=== PATIENT | male | born 1930 | race Caucasian/White ===

== ENCOUNTER 2017-02-17 11:17 | Outpatient (CLI) | payer MEDICARE, BC ==
[~2017-02-17] VITALS: Ht 170.2 cm; Wt 76.8 kg
--- NOTE | ~2017-02-17 | HEMODYNAMI ---
PATIENT:BLADE PRITCHARD MEDICAL RECORD: [id number] : 34 LOCATION:D.CAT ADMISSION DATE: 02/17/17 Generatedon:02/17/201714:15 Patient name: BLADE PRITCHARD Patient #: [id number] SSN: : 1930 Date of study: 02/17/2017 Page: Of Hemodynamic Procedure Report Patient Data Patient Demographics Procedure consent was obtained First Name: BLADE Gender: Male Last Name: FRANCHESKA : 1930 Patient #: [id number] Age: 86 year(s) Race: Unknown Additional ID: [id number] Contact details [address]: [address] [place] [address] State: [place] City: [place] Zip code: [address] Past Medical History Allergies: No known allergies Admission Admission Data Admission Date: 02/17/2017 Admission Time: 11:17 Lab Results Lab Result Date: 02/17/2017 Lab Result Time: 11:55 Biochemistry Name Units Result Min Max BUN mg/dl 20 --(----)*- 7 18 Creatinine mg/dl 1.5 --(----)-* 0.6 1.3 CBC Name Units Result Min Max Hematocrit % 38.3 *-(----)-- 42 54 Hemoglobin g/dl 12.5 *-(----)-- 13.5 17.5 Procedure Procedure Types Cath Procedure Miscellaneous Procedures Moderate Sedation up to 45 minutes Peripheral Cath Diagnostic Procedure Cath Peripheral Kgqfv-Eoaokpg-Tit-Off Procedure Description Procedure Date Procedure Date: 02/17/2017 Procedure Start Time: 14:00 Procedure End Time: 14:14 Procedure Staff Name Function Jose Ramon Barajas MD Performing Physician Cassie Nevarez RT Scrub Franklin Fam RN Nurse Herson Soliz RT Monitor Procedure Data Cath Procedure Fluoroscopy Diagnostic fluoroscopy Total fluoroscopy Time: 1.8 time: 1.8 min min Diagnostic fluoroscopy Total fluoroscopy dose: dose: 128.37 mGy 128.37 mGy Contrast Material Contrast Material Type Amount (ml) Isovue 300 123 Entry Location Entry Primary Successful Side Size Upsize Upsize Entry Closure Succes sful Closure Location (Fr) 1 (Fr) 2 (Fr) Remarks Device Remarks Femoral Right 5 Fr Exoseal artery Estimated blood loss: 5 ml Diagnostic catheters Device Type Used For End Catheter Placement Cordis Tempo 5Fr UF Procedure catheter Procedure Complications No complications Procedure Medications Medication Administration Route Dosage Oxygen NC 2 l/min Heparin Flush Bag added to field 2 bags (1000units/500ml NS) 0.9% NaCl I.V. 100 ml/hr Fentanyl I.V. 50 mcg Versed I.V. 1 mg Fentanyl I.V. 50 mcg Versed I.V. 1 mg Hemodynamics Rest HGB: 12.5 (g/dl) Heart Rate: 60 (bpm) Snapshots Pre Cath Intra NCS Post Cath Vital Signs Time Heart Resp SPO2 NIBP (mmHg) Rhythm Pain Sedation Rate (ipm) (%) Status Level (bpm) 13:40:21 64 17 99 159/79(127) NSR 0 (11) 10(A) , No pain 13:44:49 60 17 98 153/72(137) NSR 0 (11) 10(A) , No pain 13:49:12 60 16 98 136/73(119) NSR 0 (11) 10(A) , No pain 13:53:32 60 17 98 144/71(118) NSR 0 (11) 9(A) , No pain 13:57:56 60 19 99 137/74(119) NSR 0 (11) 9(A) , No pain 14:02:18 60 18 98 127/66(116) NSR 0 (11) 9(A) , No pain 14:06:38 63 16 97 118/64(104) NSR 0 (11) 9(A) , No pain 14:10:58 60 17 98 131/60(117) NSR 0 (11) 9(A) , No pain 14:12:45 61 17 99 128/67(115) NSR 0 (11) 9(A) , No pain Medications Time Medication Route Dose Verified Delivered Reason Notes Effec tiveness by by 13:51:14 Oxygen NC 2 Franklin Reid Per l/min Sarwat Fam RN physician RN 13:51:25 Heparin Flush added 2 Franklin Reid used for Bag to bags Fam Fam construction management assistant (1000units/500ml field RN NS) 13:51:37 0.9% NaCl I.V. 100 Franklin Reid Per ml/hr Sarwat aFm RN physician RN 13:52:23 Fentanyl I.V. 50 Franklin Franklin for [facility] Sarwat Fam RN sedation RN 13:52:31 Versed I.V. 1 mg Franklin Franklin for Sarwat Fma RN sedation RN 13:58:33 Fentanyl I.V. 50 Franklin Franklin for [facility] Sarwat Fam RN sedation RN 13:58:39 Versed I.V. 1 mg Franklin Franklin for Sarwat Fam RN sedation ct technician Log Time Note 13:03:37 Informed consent obtained and on chart 13:04:51 Diagnostic Cath status Elective 13:05:44 H&P Date Dictated: 02/10/2017 Within 30 days and on chart., H&P Addendum completed by physician on day of procedure. (MUST COMPLETE FOR ALL OUTPATIENTS). 13:22:02 Franklin Fam RN sent for patient. Start room use. 13:32:04 Time tracking: Regular hours 13:32:07 Plan of Care:Hemodynamics will remain stable., Cardiac rhythm will remain stable., Comfort level will be maintained., Respiratory function will remain adequate., Patient/ family verbilizes understanding of procedure., Procedure tolerated without complication., Recovers from procedure without complications.. 13:32:47 Lab Result : Hemoglobin 12.5 g/dl 13:32:47 Lab Result : Hematocrit 38.3 % 13:32:47 Lab Result : BUN 20 mg/dl 13:32:47 Lab Result : Creatinine 1.5 mg/dl 13:33:14 Patient allergic to No known allergies 13:34:07 Patient received from Pre/Post Procedure Room to CCL 3 Alert and oriented. Tansferred to table in Supine position. 13:34:08 Warm blankets applied, and kaleigh hugger turned on for patient comfort. 13:34:08 Correct patient and procedure confirmed by team. 13:34:09 ECG and BP/O2 sat monitors applied to patient. 13:39:00 Vital chart was started 13:47:36 Baseline sample Acquired. 13:48:15 Rhythm: paced 13:48:21 Pre-procedure instructions explained to patient. 13:48:21 Pre-op teaching completed and patient verbalized understanding. 13:48:22 Family in waiting room. 13:48:23 Patient NPO since Midnight. 13:48:25 Is the patient allergic to Iodine/contrast media? No. 13:48:26 Is patient on blood thinner?Yes 13:48:30 ACC The patient was administered the following blood thiners within the last 24 hours: Eliquis 13:48:32 Patient diabetic? No. 13:48:50 Previous problem with sedation/anesthesia? No ? 13:48:52 Snore? Yes 13:48:53 Sleep apnea? No 13:48:58 Deviated septum? No 13:48:59 Opens mouth fully? Yes 13:49:00 Sticks out tongue? Yes 13:49:03 Airway obstruction? Yes copd 13:49:06 Dentures? No ? 13:49:11 Patient pain scale 0/10 ?. 13:49:17 IV patent on arrival in left forearm with 0.9% NaCl at [facility]. 13:49:20 Lab results completed and on chart. 13:49:26 Bilateral groins area was prepped with chlora-prep and draped in sterile fashion 13:49:28 Alarms reviewed by R. N. 13:49:28 Sharps counted by scrub and verified by R.N. 13:49:41 Tegaderm 4 x 4 opened to sterile field. 13:49:43 Acist Manifold opened to sterile field. 13:49:44 Acist Hand Control opened to sterile field. 13:49:45 Acist Syringe opened to sterile field. 13:49:46 Bag Decanter opened to sterile field. 13:49:46 Medline Cath Pack opened to sterile field. 13:49:47 Terumo 5Fr Montgomery Sheath opened to sterile field. 13:49:47 St Justyn 260cm J .035 wire opened to sterile field. 13:49:57 Physician arrived 13:49:57 --------ALL STOP TIME OUT------ 13:49:57 Final Timeout: patient, procedure, and site verified with staff and physician. All members of the team are in agreement. 13:49:59 Bilateral groins site verified by team. 13:50:01 Physical assessment completed. ASA score P 2 - A patient with mild systemic disease as per Jose Ramon Barajas MD. 13:50:04 Sedation plan: IV Moderate Sedation Versed, Fentanyl 13:51:14 Oxygen 2 l/min NC was administered by Franklin Fam RN; Per physician; 13:51:25 Heparin Flush Bag (1000units/500ml NS) 2 bags added to field was administered by Franklin Fam RN; used for procedure; 13:51:37 0.9% NaCl 100 ml/hr I.V. was administered by Franklin Fam RN; Per physician; 13:52:23 Fentanyl 50 mcg I.V. was administered by Franklin Fam RN; for sedation; 13:52:31 Versed 1 mg I.V. was administered by Franklin Fam RN; for sedation; 13:58:33 Fentanyl 50 mcg I.V. was administered by Franklin Fam RN; for sedation; 13:58:39 Versed 1 mg I.V. was administered by Franklin Fam RN; for sedation; 13:58:43 Zero performed for pressure channel P1 13:58:48 Zero performed for pressure channel P1 13:58:54 Zero performed for pressure channel P1 13:59:32 Zero performed for pressure channel P1 13:59:42 Zero performed for pressure channel P1 13:59:53 Zero performed for pressure channel P1 14:00:00 Zero performed for pressure channel P1 14:00:16 Procedure started. 14:00:16 Full Disclosure recording started 14:00:19 Local anesthetic to right femoral artery with Lidocaine 2% by Jose Ramon Barajas MD.INITIAL ACCESS ONLY 14:00:25 Zero performed for pressure channel P1 14:00:38 Zero performed for pressure channel P1 14:00:48 A 5 Fr sheath was inserted into the Right Femoral artery 14:01:16 A Cordis Tempo 5Fr UF catheter was advanced over the wire and used for Procedure. 14:01:34 Zero performed for pressure channel P1 14:01:38 Zero performed for pressure channel P1 14:05:28 Abdominal Aortagram was performed. 14:05:30 Right leg runoff performed. 14:05:54 Left leg runoff performed. 14:08:36 Cordis 5Fr Exoseal opened to sterile field. 14:08:39 Catheter removed. 14:08:48 Sheath removed intact; hemostasis achieved with Exoseal to the Right Femoral artery. 14:12:33 Procedure ended.(Physican Out) 14:13:17 Fluoroscopy time 01.80 minutes. 14:13:25 Fluoroscopy dose: 128.37 mGy 14:13:25 Flurop Dose total: 128.37 14:13:44 Contrast amount:Isovue 300 123ml. 14:13:45 Sharps counted by scrub and verified by R.N. 14:13:48 Insertion/operative site no bleeding no hematoma. 14:13:51 Post-op/insertion site Right Femoral artery dressed using a 4 x 4 and Tegaderm. 14:13:55 Post right femoral artery:stable, soft, clean and dry 14:13:58 Post Procedure Pulses reassessed and unchanged 14:14:00 Post-procedure physical assessment completed. ASA score P 2 - A patient with mild systemic disease as per Jose Ramon Barajas MD. 14:14:02 Post procedure rhythm: unchanged. 14:14:04 Estimated blood loss: 5 ml 14:14:05 Post procedure instruction explained to patient.Patient verbalizes understanding. 14:14:06 Patient needs reinforcement of post procedure teaching. 14:14:18 Procedure type changed to Cath procedure, Miscellaneous Procedures, Moderate Sedation up to 45 minutes, Peripheral Cath Diagnostic Procedure, Cath Peripheral, Kqdqh-Csdiynv-Qve-Off 14:14:37 Procedure and supply charges have been captured, reviewed, submitted and are correct. 14:14:40 Procedure Complication : No complications 14:14:42 Vital chart was stopped 14:14:42 See physician's report for complete and final results. 14:14:44 Report given to Pre/Post Procedure Room. 14:14:49 Patient transfered to Pre/Post Procedure Room with Stretcher. 14:14:56 Procedure ended. 14:14:56 Full Disclosure recording stopped 14:15:01 End room use (Document Last) Device Usage Item Manufacture Quantity Catalog Hospital Part Current Minimal Lot# / Name Number Charge Number Stock Stock Severino al# Code Tegaderm 1 [id number] [id number] 5 4 x 4 Acist Acist 1 89470 812783 847101 583754 5 [employer]ifold [employer] Inc Acist Acist 1 89798 135912 839308 617592 5 Hand Medical Control Systems Inc Acist Acist 1 51186 012284 783571 888363 20 Syringe Medical [employer] Inc Bag Microtek 1 2002S 994066 69669 015338 5 [employer] Medline Cardinal 1 [id number] 335657 07079 437539 5 Cath Health Pack Terumo Terumo 1 [id number] 448259 404356 922587 [address] St Justyn 1 258121 682135 773406 220716 30 260cm J .035 wire Cordis Cardinal 1 [id number] 729215 746967 649923 10 [facility] 5Fr UF catheter Cordis Cardinal 1 [id number] 910933 316499 963887 10 5Fr Health Exoseal Signature Audit [place] Stage Time Signature Unsigned Intra-Procedure 02/17/2017 Herson Soliz 2:15:13 PM RT(R) Signatures Monitor : Herson Soliz RT Signature : Date : Time : [place] [id number] [place] [address]
--- NOTE | ~2017-02-17 | OP ---
PATIENT NAME: BLADE PRITCHARD MEDICAL RECORD: [id number] :32 LOCATION:D.CAT ADMISSION DATE: SURGEON: ELIZABETH ROBLES M.D. DATE OF OPERATION: 02/17/2017 REFERRING PHYSICIAN: Guillermo Ta DO PROCEDURES PERFORMED: Aortofemoral runoff. INDICATION: An 86-year-old gentleman, who presents with lifestyle limiting claudication, abnormal lower extremity arterial duplex. DESCRIPTION: A 5-Persian sheath was inserted in retrograde fashion in the right common femoral artery. Next, a UF catheter was advanced to the level of T12. Power injection was performed to visualize the distal aorta. Next, the catheter was pulled down to the level of the bifurcation. Power injection was then performed to visualize the right and left lower extremities. FINDINGS: The mid aorta is of good caliber. Each kidney received a single arterial supply. There is no evidence of renal artery stenosis. The infrarenal section above the bifurcation point, there does appear to be some aneurysmal formation of the distal aorta. It does not appear to be saccular. 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 There appears to be at least 12-mm across in diameter. This is followed by stenosis or abrupt step down to the right external iliac artery. The right internal iliac artery is 100% occluded. The right common femoral artery is widely patent. The right superficial artery has mild irregularities, but nothing worse than 20%. Right popliteal artery has mild irregularities, but nothing worse than 20%. Below the knee, there appears to be at least 2-vessel runoff. The left common iliac artery is large in caliber. He does not have any evidence of aneurysmal formation. The left internal iliac artery is occluded shortly after its takeoff. The left external iliac artery is large in caliber and widely patent. The left common femoral artery is large in caliber and widely patent. The left superficial artery is large in caliber and patent. The distal aspect has a smooth 40% stenosis at the junction of the popliteal artery. The left popliteal artery has mild irregularities. It is widely patent. Below the knee, there appears to be at least 2-vessel runoff. 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 I suspect his pain may be from his occluded internal iliac arteries. RECOMMENDATIONS: Likely, I will ask Dr. Ferreira to review the case. It sounds the aneurysm is concerning and could be vulnerable to rupture. TRANSINT:[id number] Voice Confirmation ID: [id number] DOCUMENT ID: [id number] OPERATIVE REPORT [id number] BLADE PRITCHARD TIMOTHY E M.D. CC: [id number] DICTATION DATE: 02/17/171421 TRANSIT MIXER DRIVER: 02/18/17 0018 DEP CLI 02/17/17 [place] [id number] [place] [id number]
[2017-02-17] MEDS ORDERED: NORVASC5 MG PO (11:47)
[2017-02-17] MEDS ORDERED: ELIQUIS2.5 MG PO (11:47)
[2017-02-17] MEDS ORDERED: ARICEPT5 MG PO (11:48)
[2017-02-17] MEDS ORDERED: DUTOPROL 25-121 EACH PO (11:49)
[2017-02-17] MEDS ORDERED: HYTRIN5 MG PO (11:50)
[2017-02-17] MEDS ORDERED: XALATAN 0.0052.5 ML RIGHT EYE (11:51)
[2017-02-17] MEDS ORDERED: SYMBICORT 16010.2 GM INH (11:53)
[2017-02-17] MEDS ORDERED: COMBIVENT RESPIM4 GM INH (11:53)
[2017-02-17] MEDS ORDERED: PROSCAR5 MG PO (11:54)
[2017-02-17] MEDS ORDERED: FOLIC ACID1 MG PO (11:55)
[2017-02-17] MEDS ORDERED: ZANTAC150 MG PO (11:56)
[2017-02-17 12:03] VITALS: BP 137/71; Ht 170.2 cm; Wt 76.8 kg
[2017-02-17 12:22] LABS: ANION GAP 10.1 mmol/L (8-16); CALCIUM 8.8 mg/dL (8.5-10.1); CREATININE - SERUM 1.5 mg/dL (0.6-1.3); POTASSIUM - SERUM 4.1 mmol/L (3.5-5.1)
[2017-02-17 12:44] LABS: BASOPHILS 0.2 % (0-2); HEMATOCRIT 38.3 % (42.0-54.0); HEMOGLOBIN 12.5 g/dL (13.5-17.5); IMMATURE GRANULOCYTES 0.1 % (0-5); LYMPHOCYTES 14.8 % (15-50); MCH 32.1 pg (26.0-34.0); MCHC 32.6 g/dL (31.0-37.0); MCV 98.5 fL (80.0-100.0); MEAN PLATELET VOLUME 10.5 fL (7.4-10.4); NEUTROPHILS 74.9 % (40-80); PLATELET COUNT 155 10x3/uL (130-400); RBC 3.89 10x6/uL (4.20-6.10); RDW 13.6 % (11.5-14.5); WBC 8.7 10x3/uL (4.8-10.8)
--- NOTE | 2017-02-17 17:00 | NUR ---
1440 LYING FLAT, NSR RATE, NO RESP DISTRESS, ROOM AIR. R GROIN 5F EXOSEAL C/D/I WITH NO HEMATOMA OR BLEEDING. FAMILY AT BEDSIDE. 1530 R GROIN REMAINS C/D/I WITH NO HEMATOMA OR BLEEDING. NSR RATE 62 W NO C/O CHEST PAIN. PULSES PALP X 4. 1630 PIV REMOVED FROM LEFT FOREARM WITH BANDAID APPLIED. AMBULATED TO BATHROOM TO VOID. R GROIN REMAINS C/D/I AFTER AMBULATING. D/C 1700 D/C INSTRUCTIONS DISCUSSED WITH PATIENT AND FAMILY. WHEELED OUT VIA WHEELCHAIR.
== END 2017-02-17 17:06 | disposition home or self-care (01) ==
LOC: D.CATH 11:17
PROVIDERS: Internal Medicine Cardiovascular Disease
DX: I25.10 Atherosclerotic heart disease of native coronary artery without angina pectoris (principal); I70.213 Atherosclerosis of native arteries of extremities with intermittent claudication, bilateral legs; I10 Essential (primary) hypertension; Z95.0 Presence of cardiac pacemaker; E78.5 Hyperlipidemia, unspecified; Z01.812 Encounter for preprocedural laboratory examination

== ENCOUNTER 2017-06-26 07:49 | Day surgery (SDC) | payer MEDICARE, BC ==
[~2017-06-26] VITALS: Ht 170.2 cm; Wt 77.1 kg
[~2017-06-26 07:49] MED LIST: ARICEPT5 MG PO; COMBIVENT RESPIM4 GM INH; DUTOPROL 25-121 EACH PO; ELIQUIS2.5 MG PO; FOLIC ACID1 MG PO; HYTRIN5 MG PO; NORVASC5 MG PO; PROSCAR5 MG PO; SYMBICORT 16010.2 GM INH; XALATAN 0.0052.5 ML RIGHT EYE; ZANTAC150 MG PO
[2017-06-26 08:27] VITALS: BP 140/66; Ht 170.2 cm; Wt 77.1 kg
[2017-06-26 08:38] LABS: BASOPHILS 0.4 % (0-2); EOSINOPHILS 2.6 % (0-7); HEMATOCRIT 38.4 % (42.0-54.0); IMMATURE GRANULOCYTES 0.1 % (0-5); LYMPHOCYTES 17.7 % (15-50); MCH 32.7 pg (26.0-34.0); MCHC 33.9 g/dL (31.0-37.0); MCV 96.7 fL (80.0-100.0); MONOCYTES 11.9 % (2-11); NEUTROPHILS 67.3 % (40-80); PLATELET COUNT 133 10x3/uL (130-400); RBC 3.97 10x6/uL (4.20-6.10); RDW 12.8 % (11.5-14.5); WBC 6.9 10x3/uL (4.8-10.8)
[2017-06-26 08:55] LABS: ANION GAP 7.9 mmol/L (8-16); CALCIUM 8.6 mg/dL (8.5-10.1); CARBON DIOXIDE 28.3 mmol/L (21.0-32.0); CREATININE - SERUM 1.6 mg/dL (0.6-1.3); POTASSIUM - SERUM 4.2 mmol/L (3.5-5.1)
--- NOTE | 2017-06-26 20:21 | NUR ---
1320--OROURKE CATH CARE AND TEACHING SHOWN, PT AND FAMILY VERBALIZES UNDERSTANDING. PT UP TO DRESS AT THIS TIME. LINDEN TAPIA 1340--DISCHARGE INSTRUCTIONS GIVEN, PT VERBALIZES UNDERSTANDING. PT OFF UNIT VIA WC. LINDEN TAPIA
--- NOTE | 2017-06-27 09:14 | OP ---
PATIENT NAME: BLADE PRITCHARD MEDICAL RECORD: [id number] :32 LOCATION:D.[facility] ADMISSION DATE: SURGEON: ROBERTH GORDILLO MD DATE OF OPERATION: 06/26/2017 SURGEON: Roberth Gordillo MD. ANESTHESIA: General anesthesia, Rafat Ferreira CRNA PREOPERATIVE DIAGNOSIS: Obstructive benign prostatic hypertrophy. PROCEDURES: Cystoscopy, GreenLight laser transurethral resection of the prostate, power 80 nassar, energy 18,266 joules, laser on time 3 minutes 55 seconds. BLOOD LOSS: None. FINDINGS: Obstructive bladder neck. Prior TURP of the lateral lobes of the prostate. Trabeculated bladder with no bladder tumors seen. Single ureteral orifices located at a distance away from the bladder neck. CLINICAL HISTORY: This 86-year-old gentleman served in [employer] in the 1950s under General [employer] Good. Subsequently, he had problems with obstructive BPH and he was given a TURP many years ago at the [facility]. He has been on finasteride and terazosin for many years for recurrence of BPH symptoms, but they have not been helping him. He comes now to have repeat TURP performed on presumed prostatic regrowth. I actually saw him way back in January, but he decided to have a surgery done now. He is not allergic to any medications. He was given Ancef IV carton lettering machine operator to the OR. DESCRIPTION OF PROCEDURE: The patient was given induction of general anesthesia. He was placed into dorsal lithotomy position and prepped and draped. A 26-New Zealander laser resectoscope was placed into the penile urethra after dilating the meatus with 82-36-Wdkzos with male sounds. The penile urethra was nonobstructive. The prostatic urethra shows normal verumontanum. The bilateral lateral lobes are not obstructive. They have been well resected in the past. What is prominent is a tight bladder neck due to regrowth of some the median lobe. Going into the bladder, there were single ureteral orifices on each side. The bladder is moderately trabeculated. No bladder tumors were seen. We can find our resection to the area between the bladder neck and the location just proximal to the verumontanum. A power of 80 nassar was used. We started with resection at the 6 o'clock position to open up a channel. We did encounter some of the lateral lobes and these were taken down also to the pseudocapsule. The tissue responded extremely well to the laser energy and vaporization was very quick. At the end of the procedure, he had a wide open channel all the way from the verumontanum level all the way to the bladder neck. No bleeding at all had been encountered. We removed the scope. A 20-New Zealander 3-way Pacheco catheter was then inserted into the bladder. The inflow port was plugged using a catheter plug. The catheter was put to bag drainage. He will be discharged home today with the Pacheco catheter. We will give his instructions on how to remove the Pacheco catheter tomorrow. If they have difficulty, they can always come to my office to have the catheter removed. TRANSINT:[id number] Voice Confirmation ID: [id number] DOCUMENT ID: [id number] OPERATIVE REPORT [id number] BLADE PRITCHARD, ROBERTH Myrick MD at 0914 CC: [id number] DICTATION DATE: 06/26/17 1155 BOILERMAKER MECHANIC: 06/26/17 1610 [facility] 06/26/17 [facility] [address] [place] [address]
== END 2017-06-26 13:40 | disposition home or self-care (01) ==
LOC: D.OPS 07:49 → D.PAN 10:15 → D.OPS 10:45 → D.PAN 12:50 → D.OPS 13:00
PROVIDERS: Anesthesiology
DX: N40.0 Benign prostatic hyperplasia without lower urinary tract symptoms (principal); I25.10 Atherosclerotic heart disease of native coronary artery without angina pectoris; I10 Essential (primary) hypertension; K21.9 Gastro-esophageal reflux disease without esophagitis; J44.9 Chronic obstructive pulmonary disease, unspecified; Z01.812 Encounter for preprocedural laboratory examination

== ENCOUNTER → 2017-07-28 18:21 | Outpatient (CLI) | payer MEDICARE, BC ==
[2017-06-26 08:27] VITALS: BMI 26.7
[2017-08-04 16:12] LABS: AEROBE ID Final report (()); RESULT 1 Streptococcus mitis (())
== END | disposition home or self-care (01) ==
LOC: D.LABREF 18:21
PROVIDERS: Urology
DX: N39.0 Urinary tract infection, site not specified (principal)

== ENCOUNTER → 2017-08-11 18:06 | Outpatient (CLI) | payer MEDICARE, BC ==
[2017-06-26 08:27] VITALS: BMI 26.7
== END | disposition home or self-care (01) ==
LOC: D.LABREF 18:06
DX: R31.9 Hematuria, unspecified (principal)

== ENCOUNTER → 2017-08-27 18:36 | Outpatient (CLI) | payer MEDICARE, BC ==
[2017-06-26 08:27] VITALS: BMI 26.7
== END | disposition home or self-care (01) ==
LOC: D.LABREF 18:36
DX: N39.0 Urinary tract infection, site not specified (principal)

== ENCOUNTER → 2017-09-23 20:00 | Outpatient (CLI) | payer MEDICARE, BC ==
[2017-06-26 08:27] VITALS: BMI 26.7
== END | disposition home or self-care (01) ==
LOC: D.LABREF 20:00
DX: N39.0 Urinary tract infection, site not specified (principal)

== ENCOUNTER → 2017-11-25 10:03 | Outpatient (CLI) | payer MEDICARE, BC ==
[2017-06-26 08:27] VITALS: BMI 26.7
== END | disposition home or self-care (01) ==
LOC: D.CT 10:03
DX: I71.4 Abdominal aortic aneurysm, without rupture (principal); I72.3 Aneurysm of iliac artery

== ENCOUNTER 2018-07-02 05:40 | Day surgery (SDC) | payer MEDICARE, BC ==
[2018-07-01 16:04] LABS: BASOPHILS 0.4 % (0-2); EOSINOPHILS 4.3 % (0-7); HEMATOCRIT 35.7 % (42.0-54.0); IMMATURE GRANULOCYTES 0.1 % (0-5); MCHC 33.6 g/dL (31.0-37.0); MCV 95.2 fL (80.0-100.0); MEAN PLATELET VOLUME 10.6 fL (7.4-10.4); MONOCYTES 12.4 % (2-11); NEUTROPHILS 60.8 % (40-80); PLATELET COUNT 150 10x3/uL (130-400); RBC 3.75 10x6/uL (4.20-6.10); RDW 12.4 % (11.5-14.5); WBC 6.7 10x3/uL (4.8-10.8)
[2018-07-01 16:28] LABS: ANION GAP 14.7 mmol/L (8-16); CALCIUM 8.5 mg/dL (8.5-10.1); CARBON DIOXIDE 26.6 mmol/L (21.0-32.0); CREATININE - SERUM 1.5 mg/dL (0.6-1.3); POTASSIUM - SERUM 4.3 mmol/L (3.5-5.1)
[~2018-07-02] VITALS: Ht 170.2 cm; Wt 72.6 kg
--- NOTE | ~2018-07-02 | OP ---
PATIENT NAME: BLADE PRITCHARD MEDICAL RECORD: [id number] :32 LOCATION:D.OPS ADMISSION DATE: SURGEON: GUILLERMO GORDILLO MD DATE OF OPERATION: 07/02/2018 ANESTHESIA: TIVA by Dr. Guillermo Vazquez. DIAGNOSIS: Urge urinary incontinence. PROCEDURES: Cystoscopy and intravesical Botox injection 100 units. FINDINGS: Single ureteral orifices bilaterally. Diffusely inflamed bladder. No urethral strictures and nonobstructive prostate. CLINICAL HISTORY: This is an 87-year-old male, who has a complaint of severe urinary urge incontinence. He has quite significant urinary frequency also. He had a TURP performed at the [facility] many years ago. In June of last year, I gave him a GreenLight laser to take down the bladder neck contracture. He continues to have urge incontinence. He has tried oxybutynin and Toviaz and Myrbetriq. These have not helped him at all. He is having to wear 2 pads per day to catch the urinary incontinence. He wishes to have a trial of Botox. He is not allergic to any medications. We gave him Ancef production welding supervisor to the OR. DESCRIPTION OF PROCEDURE: The patient was given IV sedation. He was placed in the dorsal lithotomy position and prepped and draped. A 21-Telugu cystoscope with 30-degree lens was used for visualization. Penile urethra shows no strictures. Prostatic urethra shows signs of previous resection and it is wide open. Bladder neck is also wide open. Going into the bladder, there are no bladder tumors seen. There is diffuse bladder inflammation, however. At 10 different locations excluding the trigone and the ureteral orifices, we injected 1 cc of Botox solution. Each milliliter of Botox solution had 10 units of Botox dissolved in it. A total of 100 units of Botox was thus injected into the bladder muscle wall. Once the procedure was finished, the bladder was emptied through the cystoscope sheath and then the scope was removed entirely. The patient will be seen in followup in 2 weeks' time to determine the effects of the treatment. TRANSINT:[id number] Voice Confirmation ID: [id number] DOCUMENT ID: [id number] GUILLERMO GORDILLO MD at 0953 CC: [id number] DICTATION DATE: 09/20/18 0924 CHECKERING MACHINE ADJUSTER: 07/02/18 0934 [facility] [address] [facility]
[2018-07-02 06:12] VITALS: BP 158/77; Ht 170.2 cm; Wt 72.6 kg
[2018-07-02 06:19] VITALS: BP 158/77; BMI 25.1
== END 2018-07-02 10:15 | disposition home or self-care (01) ==
LOC: D.OPS 05:40 → D.PAN 07:30 → D.OPS 08:00 → D.PAN 09:45 → D.OPS 09:45
PROVIDERS: Anesthesiology
DX: N39.41 Urge incontinence (principal); Z01.812 Encounter for preprocedural laboratory examination

== ENCOUNTER 2019-02-02 06:56 | Day surgery (SDC) | payer MEDICARE, BC ==
[~2019-02-02] VITALS: Ht 170.2 cm; Wt 73.9 kg
[2019-02-02 07:24] LABS: BASOPHILS 0.3 % (0-2); EOSINOPHILS 2.2 % (0-7); HEMATOCRIT 38.5 % (42.0-54.0); HEMOGLOBIN 12.9 g/dL (13.5-17.5); IMMATURE GRANULOCYTES 0.3 % (0-5); LYMPHOCYTES 21.5 % (15-50); MCH 31.9 pg (26.0-34.0); MCHC 33.5 g/dL (31.0-37.0); MCV 95.3 fL (80.0-100.0); MEAN PLATELET VOLUME 10.5 fL (7.4-10.4); MONOCYTES 11.5 % (2-11); NEUTROPHILS 64.2 % (40-80); PLATELET COUNT 159 10x3/uL (130-400); RBC 4.04 10x6/uL (4.20-6.10); RDW 13.1 % (11.5-14.5); WBC 6.9 10x3/uL (4.8-10.8)
[2019-02-02 07:50] LABS: APTT 29.4 SECONDS (22.8-39.4); INR 1.06 (0.85-1.17); PROTIME 13.3 SECONDS (11.6-15.0)
[2019-02-02 07:56] LABS: CALCIUM 8.7 mg/dL (8.5-10.1); CARBON DIOXIDE 29.1 mmol/L (21.0-32.0); CREATININE - SERUM 1.5 mg/dL (0.6-1.3); POTASSIUM - SERUM 4.1 mmol/L (3.5-5.1)
[2019-02-02 08:41] VITALS: BP 147/77; Ht 170.2 cm; Wt 73.9 kg
--- NOTE | 2019-02-02 11:40 | NUR ---
REPORT GIVEN FROM ANY GORDILLO IN ROOM TO TALK WITH PT AND SAUGHTER
--- NOTE | 2019-02-02 12:30 | OP ---
PATIENT NAME: BLADE PRITCHARD MEDICAL RECORD: [id number] :32 LOCATION:D.[facility] ADMISSION DATE: SURGEON: GUILLERMO GORDILLO MD DATE OF OPERATION: 02/02/2019 SURGEON: Guillremo Gordillo MD ANESTHESIA: General anesthesia by Dr. Tai Luong. DIAGNOSIS: Urge urinary incontinence. PROCEDURES: Cystoscopy, intravesical Botox injection 100 units. FINDINGS: No urethral strictures. Well resected prostate. Single ureteral orifices bilaterally with no bladder tumors. Heavily trabeculated bladder with cellules. BLOOD LOSS: None. SPECIMENS: None. CLINICAL HISTORY: This is an 88-year-old male, who had a GreenLight TURP last year for obstructive voiding symptoms. Afterwards, he had persistent issues with urge urinary incontinence, which did not respond to medications. Finally, on 07/02/2018, he had intravesical Botox injection and this did control his urge incontinence. After 6 months, the Botox is starting to wear off. He would like to have another treatment with Botox now. He is not allergic to any medications. He was given Ancef pci security consultant to the OR. DESCRIPTION OF PROCEDURE: The patient was given induction of general anesthesia. He was placed in lithotomy position and prepped and draped. A 21-Japanese cystoscope with 30-degree lens was used for visualization. There are no penile urethral strictures. There is a well resected prostate with no bladder neck contracture. Going into the bladder, no bladder tumors were seen. He has a very trabeculated bladder. In 10 different locations, avoiding the trigone and the ureteral orifices, we injected 1 mL of Botox solution. Each milliliter of Botox solution contains 10 units of Botox. Thus, a total of 100 units was given into the bladder distributed over 10 different locations. At the end of the procedure, the bladder was emptied through the cystoscope sheath and then the scope was removed. The patient will be seen in followup in 2 weeks' time. TRANSINT:[id number] Voice Confirmation ID: [id number] DOCUMENT ID: [id number] GUILLERMO GORDILLO MD at 1230 CC: [id number] DICTATION DATE: 02/02/19 1129 TABLE GAMES DUAL RATE SUPERVISOR: 02/02/19 1204 [facility] [address] [place] [address]
--- NOTE | 2019-02-02 12:44 | NUR ---
IV REMOVED AND PT DISCHARGED WITH DISCHRGE INSTRUCTIONS
== END 2019-02-02 12:50 | disposition home or self-care (01) ==
LOC: D.OPS 06:56 → D.PAN 09:30 → D.OPS 12:50
PROVIDERS: Anesthesiology; ATTEND Urology
DX: N39.41 Urge incontinence (principal)

== ENCOUNTER → 2019-05-07 13:24 | Outpatient (CLI) | payer MEDICARE, BC ==
[2019-02-02 08:41] VITALS: BMI 25.6
== END | disposition home or self-care (01) ==
LOC: D.CT 13:24
PROVIDERS: ATTEND Internal Medicine Cardiovascular Disease
DX: I71.4 Abdominal aortic aneurysm, without rupture (principal); I72.3 Aneurysm of iliac artery

== ENCOUNTER → 2019-06-21 13:07 | Outpatient (CLI) | payer MEDICARE, BC ==
[2019-02-02 08:41] VITALS: BMI 25.6
== END | disposition home or self-care (01) ==
LOC: D.US 13:07
PROVIDERS: ATTEND Internal Medicine Cardiovascular Disease
DX: I65.23 Occlusion and stenosis of bilateral carotid arteries (principal); I10 Essential (primary) hypertension; R42 Dizziness and giddiness

== ENCOUNTER 2019-08-24 12:12 | Emergency (ER) | payer MEDICARE, BC ==
[~2019-08-24] VITALS: Ht 170.2 cm; Wt 72.7 kg
[2019-08-24 12:19] VITALS: BP 149/80; Ht 170.2 cm; Wt 72.7 kg
[2019-08-24 15:28] LABS: BASOPHILS 0.3 % (0-2); EOSINOPHILS 2.5 % (0-7); HEMATOCRIT 37.9 % (42.0-54.0); HEMOGLOBIN 12.2 g/dL (13.5-17.5); IMMATURE GRANULOCYTES 0.1 % (0-5); LYMPHOCYTES 20.2 % (15-50); MCH 32.2 pg (26.0-34.0); MCHC 32.2 g/dL (31.0-37.0); MEAN PLATELET VOLUME 10.4 fL (7.4-10.4); MONOCYTES 9.8 % (2-11); NEUTROPHILS 67.1 % (40-80); PLATELET COUNT 172 10x3/uL (130-400); RBC 3.79 10x6/uL (4.20-6.10); WBC 7.2 10x3/uL (4.8-10.8)
[2019-08-24 15:37] LABS: ANION GAP 9.7 mmol/L (8-16); CALCIUM 8.7 mg/dL (8.5-10.1); CARBON DIOXIDE 32.3 mmol/L (21.0-32.0); CREATININE - SERUM 1.4 mg/dL (0.6-1.3)
[2019-08-24 15:42] LABS: ALBUMIN 3.8 g/dL (3.4-5.0); BILIRUBIN - TOTAL 0.57 mg/dL (0.2-1.3)
[2019-08-24 15:49] LABS: APTT 31.8 SECONDS (22.8-39.4); INR 1.16 (0.85-1.17); PROTIME 14.3 SECONDS (11.6-15.0)
[2019-08-24 15:59] LABS: APPEARANCE CLEAR (CLEAR); BILIRUBIN NEGATIVE (NEGATIVE); COLOR YELLOW (YELLOW); GLUCOSE NEGATIVE (NEGATIVE); KETONE NEGATIVE (NEGATIVE); NITRITE NEGATIVE (NEGATIVE); PROTEIN NEGATIVE (NEGATIVE); UROBILINOGEN NORMAL (NORMAL)
[2019-08-24 16:00] LABS: RED CELLS - URINE OCC /hpf (0-5); WHITE CELLS - URINE OCC /hpf (NEGATIVE)
== END 2019-08-24 17:19 | disposition home or self-care (01) ==
LOC: D.ER 12:12
PROVIDERS: Emergency Medicine
DX: H53.8 Other visual disturbances (principal); H91.90 Unspecified hearing loss, unspecified ear; I10 Essential (primary) hypertension; Z95.0 Presence of cardiac pacemaker; I73.9 Peripheral vascular disease, unspecified; J44.9 Chronic obstructive pulmonary disease, unspecified; N40.0 Benign prostatic hyperplasia without lower urinary tract symptoms; R39.15 Urgency of urination; H40.9 Unspecified glaucoma; H26.9 Unspecified cataract

== ENCOUNTER → 2019-12-30 09:24 | Outpatient (CLI) | payer MEDICARE, BC ==
[2019-08-24 12:19] VITALS: BMI 25.1
== END | disposition home or self-care (01) ==
LOC: D.RAD 09:24
PROVIDERS: ATTEND Internal Medicine Gastroenterology
DX: R13.12 Dysphagia, oropharyngeal phase (principal)

== ENCOUNTER 2020-01-10 08:00 | Outpatient (CLI) | payer MEDICARE, BC ==
[~2020-01-10 08:00] MED LIST changes: -DUTOPROL 25-121 EACH PO; +HYDROCHLOROTHIAZIDE PO; +METOPROLOL SUCCINATE PO
[2020-01-10 11:43] LABS: ANION GAP 12.2 mmol/L (8-16); CALCIUM 8.9 mg/dL (8.5-10.1); CARBON DIOXIDE 28.4 mmol/L (21.0-32.0); CREATININE - SERUM 1.7 mg/dL (0.6-1.3); POTASSIUM - SERUM 4.6 mmol/L (3.5-5.1)
[2020-01-10 11:46] LABS: INR 1.07 (0.85-1.17); PROTIME 13.9 SECONDS (11.6-15.0)
[2020-01-10 11:47] LABS: APTT 30.5 SECONDS (22.8-39.4)
[2020-01-10 11:56] LABS: BASOPHILS 0.1 % (0-2); HEMATOCRIT 40.4 % (42.0-54.0); HEMOGLOBIN 12.9 g/dL (13.5-17.5); IMMATURE GRANULOCYTES 0.3 % (0-5); LYMPHOCYTES 10.1 % (15-50); MCH 31.4 pg (26.0-34.0); MCHC 31.9 g/dL (31.0-37.0); MCV 98.3 fL (80.0-100.0); MEAN PLATELET VOLUME 10.4 fL (7.4-10.4); MONOCYTES 8.1 % (2-11); NEUTROPHILS 80.4 % (40-80); RBC 4.11 10x6/uL (4.20-6.10); RDW 13.5 % (11.5-14.5); WBC 15.2 10x3/uL (4.8-10.8)
[2020-01-10 11:57] LABS: PLATELET COUNT 207 10x3/uL (130-400)
--- NOTE | 2020-01-10 12:36 | NUR ---
1200-patient states took eliquis yesterday. dr tamez notified and procedure cancelled. 1210-dr tamez here to talk to patient. 1218-spoke with office and rescheduled for next week. 1230-patient discharged with instructions to return next week and to hold eliquis after friday.
[2020-01-17 07:39] VITALS: BMI 26.3
== END 2020-01-10 08:01 | disposition home or self-care (01) ==
LOC: D.OPS 08:00 → EDSTATUS 12:30
PROVIDERS: ATTEND Internal Medicine Gastroenterology
DX: Z53.8 Procedure and treatment not carried out for other reasons (principal)

== ENCOUNTER 2020-01-17 06:21 | Day surgery (SDC) | payer MEDICARE, BC ==
[~2020-01-17] VITALS: Ht 170.2 cm; Wt 76.4 kg
--- NOTE | ~2020-01-17 | OP ---
PATIENT NAME: BLADE PRITCHARD MEDICAL RECORD: [id number] :34 LOCATION:[facility] ADMISSION DATE: SURGEON: KENNEY MCINTOSH DO DATE OF OPERATION: 01/17/2020 PROCEDURE: EGD with balloon dilation and biopsies. INDICATIONS FOR PROCEDURE: Abnormal barium swallow and dysphagia. SCOPE: Olympus video gastroscope. MEDICATIONS: Propofol 200 mg IV per anesthesia. ESTIMATED BLOOD LOSS: Minimal. COMPLICATIONS: None. FINDINGS: Informed consent was given. The patient was made comfortable with the above medication. After reaching an adequate level of sedation by slow IV push, the patient was placed on his left side. The endoscope was advanced under direct visualization through the mouth to the second portion of the duodenum with ease. 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 There were no abnormal nodules or other findings within this patch of mucosa. The middle esophagus appeared normal. In the distal esophagus and GE junction, there was evidence of LA class A reflux-induced esophagitis and some esophageal stenosis. Cold forceps, biopsies were taken from the GE junction and the site was dilated with 16-18 mm CRE dilating balloon up to a maximum diameter of 18 mm successfully. The endoscope was advanced beyond the GE junction into the stomach and retroflexed to view the cardia, which appeared normal. The fundus and body of the stomach appeared normal. In the distal body of the stomach down to the antrum and prepyloric region, there was scattered erythema and granularity as well as a few superficial ulcerations consistent with gastritis. Cold forceps, biopsies were taken from the antrum and incisura to submit for histopathology and to rule out the presence of H. pylori. The endoscope was advanced through the pylorus into the duodenum. In the bulb and into the second portion of the duodenum, there were very superficial ulcerations and some erythema and granularity consistent with duodenitis. Cold forceps biopsies were taken from these sites. The endoscope was withdrawn from the patient. The patient tolerated the procedure well and there were no complications. IMPRESSION: 1. 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 2. LA class A reflux-induced esophagitis. 3. Esophageal stenosis status post dilation 18 mm. 4. Gastritis. 5. Duodenitis. PLAN AND RECOMMENDATIONS: 1. Discharge home when recovery parameters are met. 2. Follow up biopsy specimen results. 3. GERD diet and reflux precautions. 4. Continue current medications. 5. We will provide a prescription for omeprazole 40 mg daily to be taken for 60 days total, and then discontinue. OPERATIVE REPORT [id number] BLADE PRITCHARD 6. Follow up in GI clinic in approximately 6 weeks. 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 [place] 01/17/[address] [id number]
[2020-01-17 07:13] LABS: HEMOGLOBIN 12.9 g/dL (13.5-17.5); MCH 31.4 pg (26.0-34.0); MCHC 32.3 g/dL (31.0-37.0); MCV 97.3 fL (80.0-100.0); MEAN PLATELET VOLUME 10.1 fL (7.4-10.4); RBC 4.11 10x6/uL (4.20-6.10); RDW 13.2 % (11.5-14.5); WBC 9.6 10x3/uL (4.8-10.8)
[2020-01-17 07:22] LABS: ANION GAP 14.2 mmol/L (8-16); CALCIUM 9.2 mg/dL (8.5-10.1); CARBON DIOXIDE 25.1 mmol/L (21.0-32.0); POTASSIUM - SERUM 4.3 mmol/L (3.5-5.1)
[2020-01-17 07:26] LABS: APTT 27.2 SECONDS (22.8-39.4); PROTIME 13.2 SECONDS (11.6-15.0)
[2020-01-17 07:39] VITALS: BP 150/74; Ht 170.2 cm; Wt 76.4 kg
--- NOTE | 2020-01-17 08:51 | NUR ---
0850 WATER LEFT AT BEDSIDE, PT. STILL SEEPING, AWAKENS BRIEFLY, NODS AFFIRMATIVELY WHEN ASKED IF IS DOING OKAY.
--- NOTE | 2020-01-17 08:58 | NUR ---
0855 FL DIET LEFT AT BEDSIDE PT AROUSING.
== END 2020-01-17 10:00 | disposition home or self-care (01) ==
LOC: D.OPS 06:21
PROVIDERS: Anesthesiology; ATTEND Internal Medicine Gastroenterology
DX: R13.10 Dysphagia, unspecified (principal); K22.2 Esophageal obstruction; K29.70 Gastritis, unspecified, without bleeding; K21.0 Gastro-esophageal reflux disease with esophagitis; Z95.0 Presence of cardiac pacemaker